=== PATIENT | female | born 1940 | race African-American/Black ===

== ENCOUNTER 2017-06-25 07:06 | Emergency (ER) | payer MEDICARE, OTHER ==
[2017-06-25] MEDS: ACETAMINOPHEN 325 MG TABLET. PO (08:23)
== END 2017-06-25 09:14 | disposition home or self-care (01) ==
LOC: ER 07:06
DX: S16.1XXA Strain of muscle, fascia and tendon at neck level, initial encounter (principal); S39.012A Strain of muscle, fascia and tendon of lower back, initial encounter; I10 Essential (primary) hypertension; E11.9 Type 2 diabetes mellitus without complications; Z88.2 Allergy status to sulfonamides; V43.42XA Person boarding or alighting a car injured in collision with other type car, initial encounter; Y93.89 Activity, other specified; Y99.8 Other external cause status; Y92.488 Other paved roadways as the place of occurrence of the external cause
CPT/HCPCS: 72100; 72125; 99284-25

== ENCOUNTER → 2017-09-08 | Outpatient (CLI) | payer MEDICARE, OTHER | END | disposition home or self-care (01) | LOC: MAMMO 07:48 | DX: Z12.31 Encounter for screening mammogram for malignant neoplasm of breast (principal); I10 Essential (primary) hypertension; E11.9 Type 2 diabetes mellitus without complications | CPT/HCPCS: 77063; 77067 ==

== ENCOUNTER 2018-06-29 18:46 | Inpatient (IN) | payer MEDICARE ==
[~2018-06-29] VITALS: Ht 162.6 cm; Wt 61.3 kg
[~2018-06-29 18:46] MED LIST: METF500T16 PO; METO-239 PO
[2018-06-29] MEDS ORDERED: fentaNYL PF VIAL 100 MCG/2 ML VIAL IV ONE (19:30)
[2018-06-29] MEDS ORDERED: ASPIRIN CHEWABLE 81 MG TABLET. PO ONE (20:00)
[2018-06-29 20:10] LABS: BASO % 0 % (0-3); EOS # 0.1 x10^3/uL (0.0-0.7); EOS % 1 % (0-3); HEMATOCRIT 40.7 % (36.0-47.0); HEMOGLOBIN 12.8 g/dL (12.0-15.5); LYMPH % 9 % (24-48); MEAN CORPUSCULAR HEMOGLOBIN 27 pg (25-35); MEAN CORPUSCULAR HGB CONC 32 g/dL (31-37); MEAN CORPUSCULAR VOLUME 86 fL (79-100); MONO # 0.9 x10^3/uL (0.0-1.1); MONO % 8 % (0-9); NEUT # 9.7 x10^3uL (1.8-7.7); NEUT % 82 % (31-73); PLATELET COUNT 190 x10^3/uL (140-400); RED BLOOD COUNT 4.73 x10^6/uL (3.50-5.40); RED CELL DISTRIBUTION WIDTH 15.4 % (11.5-14.5); WHITE BLOOD COUNT 11.9 x10^3/uL (4.0-11.0)
[2018-06-29 20:18] LABS: PROTHROMBIN TIME PATIENT 14.2 SEC (11.7-14.0)
[2018-06-29 20:29] LABS: CALCIUM 8.8 mg/dL (8.5-10.1); CREATININE 0.9 mg/dL (0.6-1.0); GFR 72.9; POTASSIUM 4.1 mmol/L (3.5-5.1)
[2018-06-29 20:34] LABS: ALBUMIN 3.4 g/dL (3.4-5.0); ALBUMIN/GLOBULIN RATIO 1.1 (1.0-1.7); TOTAL BILIRUBIN 0.6 mg/dL (0.2-1.0); TOTAL PROTEIN 6.6 g/dL (6.4-8.2)
[2018-06-29 21:00] LABS: BILIRUBIN,URINE NEGATIVE (NEG); CLARITY,URINE CLEAR; COLOR,URINE YELLOW; NITRITE,URINE NEGATIVE (NEG); PH,URINE 5.5; PROTEIN,URINE NEGATIVE (NEG-TRACE); UROBILINOGEN,URINE 0.2 mg/dL (0.2 mg/dL)
[2018-06-29 21:05] LABS: RBC,URINE RARE /HPF (0-2)
[2018-06-29 21:06] LABS: BACTERIA,URINE 0 /HPF (0-FEW); SQUAMOUS EPITHELIAL CELL,UR FEW /LPF
[2018-06-29] MEDS ORDERED: IOHEXOL 300 MG/ML 100ML VIAL. IV ONE (21:15)
--- NOTE | 2018-06-29 21:59 | RAD ---
CT scan of the abdomen and pelvis with contrast 06/29/2018 CLINICAL HISTORY: Pancreatitis. TECHNIQUE: After the intravenous administration of 75 cc of Omnipaque 300, contiguous, 5 mm axial sections were obtained through the abdomen and pelvis. One or more of the following individualized dose reduction techniques were utilized for this study: 1. Automated exposure control. 2. Adjustment of the mA and/or kV according to patient size. 3. Use of iterative reconstruction technique. FINDINGS: Comparison is made to a MRCP dated 03/31/2013. Images through the lung bases demonstrate mild cardiomegaly. Minimal dependent subsegmental atelectasis is seen bilaterally. The liver, adrenal glands and right kidney are within normal limits. Rounded low-attenuation lesions are seen involving the left kidney which likely represent cysts. These measure 3 mm to 1.2 cm in size. Surgical clips are seen within the left upper quadrant of the abdomen consistent with a splenectomy. The distal body/tail of pancreas has been resected. No acute abnormality of the remaining pancreas is seen. No pancreatic pseudocyst is noted. Atherosclerotic calcification of the abdominal aorta and its branches is noted. The abdominal aorta tapers normally. The patient is post cholecystectomy. Surgical clips are seen scattered throughout the upper abdomen. There is no evidence of bowel obstruction. Images through the pelvis demonstrate the urinary bladder distended with urine. Multiple diverticula are seen involving the sigmoid colon. No inflammatory changes are seen adjacent fat. Calcifications are seen within the pelvis phleboliths. No free fluid is seen. Mild S-shaped curvature of the thoracolumbar spine is seen. Degenerative changes are seen involving the lower thoracic and throughout the lumbar spine and both hips. IMPRESSION: No acute abnormality is seen. Electronically signed by: Beni Brink MD (06/29/2018 9:55 PM) [facility]
[2018-06-29] MEDS ORDERED: ONDANSETRON PF 4 MG/2 ML VIAL. IV PRN (22:30)
[2018-06-29] MEDS ORDERED: MORPHINE SULFATE 4 MG/ML VIAL. IV PRN (22:30)
[2018-06-29] MEDS ORDERED: IV NORMAL SALINE 1000ML BAG 1,000 ML IV SCH (23:00)
--- NOTE | 2018-06-29 23:00 | NUR ---
Pt was admitted to the unit from ER with c/o CP that started tonight on her way home from a friends house. Pt states being nauseous and vomiting once, which helped with her CP. Pt is A/Ox4, on RA, up adlib and tolerating well. Pts's B/P elevated 181/76, will recheck and call for prn medications if indicated. H&P completed, called [facility] and verified her medications with pharmacy. Pt is SR on telemetry, bed in low/locked position, call light within reach, will continue to monitor for status changes.
[2018-06-29 23:16] VITALS: BP 181/85
--- NOTE | 2018-06-30 00:01 | RAD ---
AP portable chest radiograph 06/29/2018 Clinical History: Chest pain. An AP erect portable digital radiograph of the chest was obtained. Comparison study is dated 07/12/2015. The cardiac silhouette is borderline enlarged. The thoracic aorta is tortuous. Atherosclerotic calcification of the thoracic aorta is seen. No acute pulmonary infiltrate is noted. No pneumothorax or pleural effusion is seen. Degenerative changes are seen involving the thoracic spine and both shoulders. Impression: No acute abnormality is seen. Electronically signed by: Beni Brink MD (06/29/2018 11:58 PM) [facility]
[2018-06-30] MEDS ORDERED: LOSA-73 PO (01:29)
[2018-06-30] MEDS ORDERED: HYDR-2763 PO (01:29)
[2018-06-30] MEDS ORDERED: VALS320T2 PO (01:29)
--- NOTE | 2018-06-30 01:59 | PHYS DOC ---
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 30 minutes left to right side of the chest while driving associated with single episode of emesis also has been having about a week of pain underneath bilateral ribs and her doctor thought it might be her gallbladder but they weren't really sure they said if it came back she should be evaluated. No fever she still is nauseous a little bit her chest pain has gone away. Review of Systems Review of Systems Constitutional: Denies fever or chills [] Eyes: Denies change in visual acuity, redness, or eye pain [] HENT: Denies nasal congestion or sore throat [] Respiratory: Mild cough Cardiovascular Musculoskeletal: She has one week of low back pain as well Integument: Denies rash or skin lesions [] Neurologic: Denies headache, focal weakness or sensory changes [] Endocrine: Denies polyuria or polydipsia [] All other systems were reviewed and found to be within normal limits, except as documented in this note. Current Medications Current Medications Current Medications Medications (Trade) Dose Ordered Sig/Leonora Start Time Stop Time Status Last Admin Dose Admin Aspirin (Children'S Aspirin) 324 mg 1X ONCE 06/29/18 20:00 06/29/18 20:01 DC 06/29/18 20:00 324 MG Fentanyl Citrate (Fentanyl 2ml Vial) 50 mcg 1X ONCE 06/29/18 19:30 06/29/18 19:33 DC 06/29/18 20:01 50 MCG Allergies Allergies Allergies Coded Allergies Type Severity Reaction Last Updated Verified Sulfa (Sulfonamide Antibiotics) Allergy Severe Eyes and tongue swell. 06/29/18 Yes Physical Exam Physical Exam Constitutional: Well developed, well nourished, no acute distress, non-toxic appearance. [] HENT: Normocephalic, atraumatic, bilateral external ears normal, oropharynx moist, no oral exudates, nose normal. [] Eyes: PERRLA, EOMI, conjunctiva normal, no discharge. [] Neck: Normal range of motion, no tenderness, supple, no stridor. [] Cardiovascular:Heart rate regular rhythm, no murmur [] Lungs & Thorax: Bilateral breath sounds clear to auscultation [] Abdomen: Bowel sounds normal, soft, no tenderness, no masses, no pulsatile masses. [] Skin: Warm, dry, no erythema, no rash. [] Back: No tenderness, no CVA tenderness. [] Extremities: No tenderness, no cyanosis, no clubbing, ROM intact, no edema. [] Neurologic: Alert and oriented X 3, normal motor function, normal sensory function, no focal deficits noted. [] Psychologic: Affect normal, judgement normal, mood normal. [] Current Patient Data Vital Signs Vital Signs Date Time Temp Pulse Resp B/P (MAP) Pulse Ox O2 Delivery O2 Flow Rate FiO2 06/29/18 20:28 64 16 172/80 (110) 96 Room Air 06/29/18 18:48 98.0 98.0 Lab Values Laboratory Tests Test 06/29/18 20:00 06/29/18 20:45 White Blood Count 11.9 x10^3/uL (4.0-11.0) H Red Blood Count 4.73 x10^6/uL (3.50-5.40) Hemoglobin 12.8 g/dL (12.0-15.5) Hematocrit 40.7 % (36.0-47.0) Mean Corpuscular Volume 86 fL (79-100) Mean Corpuscular Hemoglobin 27 pg (25-35) Mean Corpuscular Hemoglobin Concent 32 g/dL (31-37) Red Cell Distribution Width 15.4 % (11.5-14.5) H Platelet Count 190 x10^3/uL (140-400) Neutrophils (%) (Auto) 82 % (31-73) H Lymphocytes (%) (Auto) 9 % (24-48) L Monocytes (%) (Auto) 8 % (0-9) Eosinophils (%) (Auto) 1 % (0-3) Basophils (%) (Auto) 0 % (0-3) Neutrophils # (Auto) 9.7 x10^3uL (1.8-7.7) H Lymphocytes # (Auto) 1.0 x10^3/uL (1.0-4.8) Monocytes # (Auto) 0.9 x10^3/uL (0.0-1.1) Eosinophils # (Auto) 0.1 x10^3/uL (0.0-0.7) Basophils # (Auto) 0.0 x10^3/uL (0.0-0.2) Prothrombin Time 14.2 SEC (11.7-14.0) H Prothrombin Time INR 1.1 (0.8-1.1) Sodium Level 141 mmol/L (136-145) Potassium Level 4.1 mmol/L (3.5-5.1) Chloride Level 103 mmol/L (98-107) Carbon Dioxide Level 24 mmol/L (21-32) Anion Gap 14 (6-14) Blood Urea Nitrogen 16 mg/dL (7-20) Creatinine 0.9 mg/dL (0.6-1.0) Estimated GFR (Cockcroft-Gault) 72.9 BUN/Creatinine Ratio 18 (6-20) Glucose Level 107 mg/dL (70-99) H Calcium Level 8.8 mg/dL (8.5-10.1) Total Bilirubin 0.6 mg/dL (0.2-1.0) Aspartate Amino Transferase (AST) 41 U/L (15-37) H Alanine Aminotransferase (ALT) 24 U/L (14-59) Alkaline Phosphatase 100 U/L (46-116) Troponin I Quantitative < 0.017 ng/mL (0.000-0.055) Total Protein 6.6 g/dL (6.4-8.2) Albumin 3.4 g/dL (3.4-5.0) Albumin/Globulin Ratio 1.1 (1.0-1.7) Lipase 1111 U/L (73-393) H Urine Collection Type Unknown Urine Color Yellow Urine Clarity Clear Urine pH 5.5 Urine Specific [place] 1.015 Urine Protein Negative mg/dL (NEG-TRACE) Urine Glucose (UA) Negative mg/dL (NEG) Urine Ketones (Stick) Negative mg/dL (NEG) Urine Blood Negative (NEG) Urine Nitrite Negative (NEG) Urine Bilirubin Negative (NEG) Urine Urobilinogen Dipstick 0.2 mg/dL (0.2 mg/dL) Urine Leukocyte Esterase Negative (NEG) Urine RBC Rare /HPF (0-2) Urine WBC 1-4 /HPF (0-4) Urine Squamous Epithelial Cells Few /LPF Urine Bacteria 0 /HPF (0-FEW) Urine Mucus Slight /LPF Laboratory Tests 06/29/18 20:00 Laboratory Tests 06/29/18 20:00 EKG EKG []Normal sinus rhythm there is some subtle ST changes laterally no definite ST elevation PA. QTC 420 interpreted by me time of encounter Radiology/Procedures Radiology/Procedures The cardiac silhouette is borderline enlarged. The thoracic aorta is tortuous. Atherosclerotic calcification of the thoracic aorta is seen. No acute pulmonary infiltrate is noted. No pneumothorax or pleural effusion is seen. Degenerative changes are seen involving the thoracic spine and both shoulders. Impression: No acute abnormality is seen. Electronically signed by: Beni Brink MD (06/29/2018 11:58 PM) [facility] DICTATED and SIGNED BY: BENI BRINK MD DATE: 06/29/18 9755 [] Impressions: ancreatitis. TECHNIQUE: After the intravenous administration of 75 cc of Omnipaque 300, contiguous, 5 mm axial sections were obtained through the abdomen and pelvis. One or more of the following individualized dose reduction techniques were utilized for this study: 1. Automated exposure control. 2. Adjustment of the mA and/or kV according to patient size. 3. Use of iterative reconstruction technique. FINDINGS: Comparison is made to a MRCP dated 03/31/2013. Images through the lung bases demonstrate mild cardiomegaly. Minimal dependent subsegmental atelectasis is seen bilaterally. The liver, adrenal glands and right kidney are within normal limits. Rounded low-attenuation lesions are seen involving the left kidney which likely represent cysts. These measure 3 mm to 1.2 cm in size. Surgical clips are seen within the left upper quadrant of the abdomen consistent with a splenectomy. The distal body/tail of pancreas has been resected. No acute abnormality of the remaining pancreas is seen. No pancreatic pseudocyst is noted. Atherosclerotic calcification of the abdominal aorta and its branches is noted. The abdominal aorta tapers normally. The patient is post cholecystectomy. Surgical clips are seen scattered throughout the upper abdomen. There is no evidence of bowel obstruction. Images through the pelvis demonstrate the urinary bladder distended with urine. Multiple diverticula are seen involving the sigmoid colon. No inflammatory changes are seen adjacent fat. Calcifications are seen within the pelvis phleboliths. No free fluid is seen. Mild S-shaped curvature of the thoracolumbar spine is seen. Degenerative changes are seen involving the lower thoracic and throughout the lumbar spine and both hips. IMPRESSION: No acute abnormality is seen. Electronically signed by: Beni Brink MD (06/29/2018 9:55 PM) [facility] Course & Med Decision Making Course & Med Decision Making Pertinent Labs and Imaging studies reviewed. 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 Repeat troponins ordered for inpatient overnight. I spoke with Dr. Mejia accepted admission for chest pain as well as evidence of pancreatitis on laboratory values. CT abdomen and pelvis was negative acute patient was given pain control and admitted in stable condition Dragon Disclaimer Dragon Disclaimer This electronic medical record was generated, in whole or in part, using a voice recognition dictation system. Departure Departure Impression: Primary Impression: Pancreatitis Disposition: ADMITTED INPATIENT Admitting Physician: Other Condition: STABLE Referrals: LUIS HUTCHINSON MD (PCP) MARINA MANDUJANO MD June 30, 2018 01:59
[2018-06-30 03:38] VITALS: BP 142/76
--- NOTE | 2018-06-30 06:44 | EKG ---
[facility] [address] [place] [address] Test Date: 2018-06-29 Test Time: 18:52:02 Pat Name: JOANNE COLE Department: Room: 244 1 Gender: F Drywall Sander: BRANDY : 1940 Requested By: MARINA MANDUJANO Order Number: [id number] Reading MD: Malick Bonilla Measurements Intervals [place] Rate: 62 P: 22 DC: 208 QRS: 30 QRSD: 78 T: 84 QT: 412 QTc: 420 Interpretive Statements SINUS RHYTHM T ABNORMALITY IN HIGH LATERAL LEADS ABNORMAL ECG No previous ECG available for comparison Electronically Signed On 07-24-2018 11:41:50 CDT by Malick Bonilla
[2018-06-30 07:00] VITALS: BP 125/71
--- NOTE | 2018-06-30 09:21 | PDOC2 ---
GI CONSULT Reason For Consult: Pancreatitis HPI: HPI: 78 y/o female who was admitted w/ chest pain. Describes central sharp chest pressure that began yesterday while driving. Additionally, has been having upper abd pain ("just real bad") under ribs wrapping around bilaterally to back x 1 week. Neither pain is affected by eating but sometimes abd pain is bad enough she can't stand up straight. Labs noted mild leukocytosis and elevated lipase (1111). CT A/P was unrevealing for acute issue. Thinks she has a h/o acid reflux and used to take a pill - no longer takes medication for this and denies recent issues w/ heartburn/reflux. Describes globus/dysphagia - solid foods hand in throat and perhaps upper chest with nearly every meal and pass with water - ongoing for a couple weeks. Might have been nauseated at one point recently but no vomiting. Historically is more on the constipated side and has to take suppositories every now and then but actually had a runny stool yesterday. No hematochezia or melena. Has gained weight. Does not recall past episodes of pancreatitis. S/p pancreatic resection for cyst (at in 2007 or 2009), also cholecystectomy and splenectomy ("they took those when they did my pancreas") and ?bowel resection ("leaking"). Denies liver history. Chronic knee pain on hydrocodone and Aleve. EGD 03/2002: minimal H. pylori negative antral gastritis, esophageal empirically dilated. Colonoscopy 05/2002: internal hemorrhoids, normal random colon biopsies, hyperplastic transverse colon polyp. Colonoscopy (Dr. Bhakta) 07/2012: 6mm hyperplastic rectal polyp, Grade 2 internal hemorrhoids. MRCP in 2013 showed borderline dilated pancreatic duct (4mm), distal pancreatectomy, and cyst in anterior pancreatic head. Office records indicate h/o solid food dysphagia (with several previous EGDs prior to above), intermittent blood in stools attributed to hemorrhoids, and constipation. She is scheduled for knee replacement at and has a pre-op appointment at 8:00 a.m. tomorrow that she does not want to miss. After we had been talking awhile, she told me she had a stress test, EKG, and a CT A/P at last week - seems partially for pre-op purposes but also possibly for abd pain. She said she doesn't know results yet. PMH: PMH: HTN, HLD, DM, diverticulosis, GERD, esophageal dilation pancreatic resection, cholecystectomy, splenectomy, bilateral feet surgeries, hysterectomy, bladder sling FH: Family History: No pertinent hx (denies GI cancers or pancreas issues) Social History: Smoke: Quit ALCOHOL: rare Drugs: None ROS: GEN: Denies fevers, chills, sweats HEENT: Denies blurred vision, sore throat CV: +chest pain RESP: Denies shortness of air, cough GI: Per HPI : Denies hematuria, dysuria ENDO: +weight gain NEURO: Denies confusion, dizziness MSK: +chronic knee pain SKIN: Denies jaundice, pruritus Vitals: Vitals: Vital Signs Date Time Temp Pulse Resp B/P (MAP) Pulse Ox O2 Delivery O2 Flow Rate FiO2 06/30/18 07:00 97.8 70 16 125/71 (89) 93 Room Air 97.8 Labs: Labs: Laboratory Tests Test 06/29/18 20:00 06/29/18 20:45 06/30/18 01:50 06/30/18 08:00 White Blood Count 11.9 x10^3/uL (4.0-11.0) Red Blood Count 4.73 x10^6/uL (3.50-5.40) Hemoglobin 12.8 g/dL (12.0-15.5) Hematocrit 40.7 % (36.0-47.0) Mean Corpuscular Volume 86 fL (79-100) Mean Corpuscular Hemoglobin 27 pg (25-35) Mean Corpuscular Hemoglobin Concent 32 g/dL (31-37) Red Cell Distribution Width 15.4 % (11.5-14.5) Platelet Count 190 x10^3/uL (140-400) Neutrophils (%) (Auto) 82 % (31-73) Lymphocytes (%) (Auto) 9 % (24-48) Monocytes (%) (Auto) 8 % (0-9) Eosinophils (%) (Auto) 1 % (0-3) Basophils (%) (Auto) 0 % (0-3) Neutrophils # (Auto) 9.7 x10^3uL (1.8-7.7) Lymphocytes # (Auto) 1.0 x10^3/uL (1.0-4.8) Monocytes # (Auto) 0.9 x10^3/uL (0.0-1.1) Eosinophils # (Auto) 0.1 x10^3/uL (0.0-0.7) Basophils # (Auto) 0.0 x10^3/uL (0.0-0.2) Prothrombin Time 14.2 SEC (11.7-14.0) Prothromb Time International Ratio 1.1 (0.8-1.1) Sodium Level 141 mmol/L (136-145) Potassium Level 4.1 mmol/L (3.5-5.1) Chloride Level 103 mmol/L (98-107) Carbon Dioxide Level 24 mmol/L (21-32) Anion Gap 14 (6-14) Blood Urea Nitrogen 16 mg/dL (7-20) Creatinine 0.9 mg/dL (0.6-1.0) Estimated GFR (Cockcroft-Gault) 72.9 BUN/Creatinine Ratio 18 (6-20) Glucose Level 107 mg/dL (70-99) Calcium Level 8.8 mg/dL (8.5-10.1) Total Bilirubin 0.6 mg/dL (0.2-1.0) Aspartate Amino Transf (AST/SGOT) 41 U/L (15-37) Alanine Aminotransferase (ALT/SGPT) 24 U/L (14-59) Alkaline Phosphatase 100 U/L (46-116) Troponin I Quantitative < 0.017 ng/mL (0.000-0.055) < 0.017 ng/mL (0.000-0.055) < 0.017 ng/mL (0.000-0.055) Total Protein 6.6 g/dL (6.4-8.2) Albumin 3.4 g/dL (3.4-5.0) Albumin/Globulin Ratio 1.1 (1.0-1.7) Lipase 1111 U/L (73-393) Urine Collection Type Unknown Urine Color Yellow Urine Clarity Clear Urine pH 5.5 Urine Specific [place] 1.015 Urine Protein Negative mg/dL (NEG-TRACE) Urine Glucose (UA) Negative mg/dL (NEG) Urine Ketones (Stick) Negative mg/dL (NEG) Urine Blood Negative (NEG) Urine Nitrite Negative (NEG) Urine Bilirubin Negative (NEG) Urine Urobilinogen Dipstick 0.2 mg/dL (0.2 mg/dL) Urine Leukocyte Esterase Negative (NEG) Urine RBC Rare /HPF (0-2) Urine WBC 1-4 /HPF (0-4) Urine Squamous Epithelial Cells Few /LPF Urine Bacteria 0 /HPF (0-FEW) Urine Mucus Slight /LPF Allergies: Coded Allergies: Sulfa (Sulfonamide Antibiotics) (Verified Allergy, Severe, Eyes and tongue swell., 06/29/18) Medications: Current Medications Medications (Trade) Dose Ordered Sig/Leonora Route PRN Reason Start Time Stop Time Status Last Admin Dose Admin Fentanyl Citrate (Fentanyl 2ml Vial) 50 mcg 1X ONCE IV 06/29/18 19:30 06/29/18 19:33 DC 06/29/18 20:01 Aspirin (Children'S Aspirin) 324 mg 1X ONCE PO 06/29/18 20:00 06/29/18 20:01 DC 06/29/18 20:00 Iohexol (Omnipaque 300 Mg/ml) 75 ml 1X ONCE IV 06/29/18 21:15 06/29/18 21:16 DC 06/29/18 21:22 Sodium Chloride 1,000 ml @ 75 mls/hr [id number] IV 06/29/18 23:00 06/30/18 22:59 06/30/18 05:44 Imaging: Imaging: CXR 06/29 Impression: No acute abnormality is seen. CT A/P w/ IV contrast 06/29 Images through the lung bases demonstrate mild cardiomegaly. Minimal dependent subsegmental atelectasis is seen bilaterally. The liver, adrenal glands and right kidney are within normal limits. Rounded low-attenuation lesions are seen involving the left kidney which likely represent cysts. These measure 3 mm to 1.2 cm in size. Surgical clips are seen within the left upper quadrant of the abdomen consistent with a splenectomy. The distal body/tail of pancreas has been resected. No acute abnormality of the remaining pancreas is seen. No pancreatic pseudocyst is noted. Atherosclerotic calcification of the abdominal aorta and its branches is noted. The abdominal aorta tapers normally. The patient is post cholecystectomy. Surgical clips are seen scattered throughout the upper abdomen. There is no evidence of bowel obstruction. Images through the pelvis demonstrate the urinary bladder distended with urine. Multiple diverticula are seen involving the sigmoid colon. No inflammatory changes are seen adjacent fat. Calcifications are seen within the pelvis phleboliths. No free fluid is seen. Mild S-shaped curvature of the thoracolumbar spine is seen. Degenerative changes are seen involving the lower thoracic and throughout the lumbar spine and both hips. IMPRESSION: No acute abnormality is seen. PE: GEN: NAD HEENT: Atraumatic, PERRL LUNGS: CTAB HEART: RRR ABD: NABS, S/ND/NT EXTREMITY: No edema SKIN: No rashes, no jaundice NEURO/PSYCH: A & O 3 A/P: A/P: Chest pain, upper abd pain Leukocytosis, elevated lipase Dysphagia/globus - felt w/ solids, ?h/o GERD, past EGDs w/ empiric esophageal dilation as above S/p pancreatic resection, cholecystectomy, splenectomy - MRCP performed here in 2013 as above w/ borderline dilated PD and pancreatic head cyst CRC screen - UTD (2012) Diverticulosis H/o constipation - had a runny stool yesterday Chronic knee pain, NSAID use -- She wants to follow-up at tomorrow as planned - seems has had similar workup at both facilities. She says she's pain-free now. Okay to try clears per GI, ADAT. Will review additional recs re: pancreas w/ Dr. Walters - ?outpt MRCP and/or EUS Start PPI considering dysphagia, possible h/o GERD, and NSAID use. Could also consider EGD and/or esophagram. RN called - received records from . I reviewed - include recent MPI but no recent CT as she described - however, did have CT A/P in 2015 for back and flank pain - pancreatic findings seem about the same. MARTINEZ HERNANDEZ June 30, 2018 09:21
[2018-06-30 09:27] LABS: CHOLESTEROL/HDL RATIO 2.9
[2018-06-30] MEDS ORDERED: GINS100C3 PO (10:44)
[2018-06-30 11:00] VITALS: BP 145/77
[2018-06-30] MEDS ORDERED: PANTOPRAZOLE 40 MG TABLET.DR. PO SCH (11:30)
[2018-06-30] MEDS ORDERED: LOSARTAN POTASSIUM 50 MG TABLET. PO SCH (12:00)
[2018-06-30] MEDS ORDERED: METOPROLOL SUCC 24HR ER 50 MG TAB.ER.24H. PO SCH (12:30)
--- NOTE | 2018-06-30 13:13 | NUR ---
SS following for discharge planning. SS reviewed pt chart. Pt is from home and is currently on room air. PT/OT ordered. SS will await PT/OT evaluations and recommendations and will proceed accordingly.
--- NOTE | 2018-06-30 14:03 | SSS ---
ADMIT DATE: 06/30/2018 SHORT STAY SUMMARY CHIEF COMPLAINT: Abdominal pain. HISTORY OF PRESENT ILLNESS: This patient is a pleasant middle-aged female who normally follows at . She presented with abdominal pain. It was radiating to the chest and she was concerned she could have coronary artery disease. Actually, she had a stress test at recently that was negative. She rates her symptoms at 10/10. She has associated nausea. I discussed the case with the ER physician. We admitted the patient. Now she is in the Telemetry floor and I just examined her this morning. The nurse just called me and explained that the patient wants to leave because she has to go see her Anesthesia doctor. Clinically, she was doing well. I will go ahead and let her go if okay with GI. PAST MEDICAL HISTORY: Pancreatic resection, diabetes, hypertension, knee surgery, toe surgery, bladder surgery, hysterectomy and arrhythmias. ALLERGIES: SULFA. FAMILY HISTORY: Coronary artery disease. SOCIAL HISTORY: She does not drink, smoke or take drugs. MEDICATIONS: Reviewed. She is on hydrocodone and Aleve. REVIEW OF SYSTEMS: GENERAL: No history of weight change, weakness or fevers. SKIN: No bruising, hair changes or rashes. EYES: No blurred, double or loss of vision. NOSE AND THROAT: No history of nosebleeds, hoarseness or sore throat. HEART: No history of palpitations, chest pain or shortness of breath on exertion. LUNGS: Denies cough, hemoptysis, wheezing or shortness of breath. GASTROINTESTINAL: Denies changes in appetite, nausea, vomiting, diarrhea or constipation. GENITOURINARY: No history of frequency, urgency, hesitancy or nocturia. NEUROLOGIC: Denies history of numbness, tingling, tremor or weakness. PSYCHIATRIC: No history of panic, anxiety or depression. ENDOCRINE: No history of heat or cold intolerance, polyuria or polydipsia. EXTREMITIES: Denies muscle weakness, joint pain, pain on walking or stiffness. PHYSICAL EXAMINATION: VITAL SIGNS: Temperature afebrile, pulse 98, respirations 18 and blood pressure 144/90. GENERAL: She is alert, cooperative, requesting discharge. HEART: Normal S1, S2. LUNGS: Clear. ABDOMEN: Soft, minimal tenderness. EXTREMITIES: Trace edema. SKIN: No rashes. ENDOCRINE: No thyromegaly. LYMPHATICS: No cervical nodes. HEMATOPOIETIC: No bruising. PSYCHIATRIC: She is stable. Flat affect. LABORATORY DATA: White count is 12. Electrolytes are normal. Troponin 0. Urinalysis is negative. INR is 1. Lipase was 1111. ASSESSMENT AND PLAN: Resolving pancreatitis. The patient was admitted overnight for observation. This morning, she wants to go ahead and leave. We gave her some clear liquids. We will go ahead and discharge if okay with GI. DISPOSITION: Home. ACTIVITY: As tolerated. DIET: Low sodium. MEDICATIONS: We will resume the previous home medications. TOTAL TIME: 32 minutes. LUKAS ARGUETA DO DR: OTTONIEL/dangelo JOB#: [id number] / [id number]
[2018-06-30] MEDS ORDERED: Pantoprazole PO (14:05)
[2018-06-30 15:05] VITALS: BP 136/65
[2018-06-30 15:26] VITALS: BP 172/83
--- NOTE | 2018-06-30 16:00 | NUR ---
Discharge Note: JOANNE COLE [facility] Discharge instructions and discharge home medications reviewed with Patient and a copy given. All questions have been answered and understanding verbalized. The following instructions and handouts were given: discharge instructions, GERD info, CP info. Discontinued lines and drains: Peripheral IV intact. Patient discharged to Home or Self Care with Friend via Wheelchair at 1600. BP was 136/65 at time of discharge.
== END 2018-06-30 16:03 | disposition home or self-care (01) | DRG 440 ==
LOC: ER 18:46 → 2 SOUTH 21:10
PROVIDERS: ADMIT Internal Medicine; ATTEND Internal Medicine
DX: K85.90 Acute pancreatitis without necrosis or infection, unspecified (principal); E11.9 Type 2 diabetes mellitus without complications; E78.5 Hyperlipidemia, unspecified; G89.29 Other chronic pain; I10 Essential (primary) hypertension; I70.0 Atherosclerosis of aorta; I87.8 Other specified disorders of veins; K21.9 Gastro-esophageal reflux disease without esophagitis; K27.9 Peptic ulcer, site unspecified, unspecified as acute or chronic, without hemorrhage or perforation; K57.30 Diverticulosis of large intestine without perforation or abscess without bleeding; K59.00 Constipation, unspecified; R13.10 Dysphagia, unspecified; Z82.49 Family history of ischemic heart disease and other diseases of the circulatory system; Z90.49 Acquired absence of other specified parts of digestive tract; Z90.710 Acquired absence of both cervix and uterus; Z90.81 Acquired absence of spleen; Z90.411 Acquired partial absence of pancreas; Z88.2 Allergy status to sulfonamides
CPT/HCPCS: 36415; 71045; 74177; 80053; 80061; 81001; 83690; 84484; 85025; 85610; 93005; 96374; J3010; J7030; Q9967; 99285-25

== ENCOUNTER → 2018-09-09 | Outpatient (CLI) | payer MEDICARE ==
[~2018-09-09] MED LIST changes: +GINS100C3 PO; +HYDR-2763 PO; +LOSA-73 PO; +Pantoprazole PO; +VALS320T2 PO
--- NOTE | 2018-09-10 11:07 | RAD ---
EXAM: MAMMO [facility] DIAG LT, BREAST LEFT HISTORY: imaging evaluation of a region of pain in the left breast COMPARISON: 04/02/2017 09/25/2012 Left CC and MLO views of the breasts were performed. Left breast tomosynthesis was performed in CC and MLO projections. This study was interpreted with the benefit of Computerized Aided Detection (CAD). Breast Density: The breast parenchyma is heterogeneously dense, which could reduce sensitivity of mammography. Breast parenchyma level C. FINDINGS: Benign calcifications are present. A small well-circumscribed masses seen in the retroareolar, slightly superior left breast measuring approximately 5 cm from the nipple. The visualized axillae are unremarkable. Given the patient described left breast pain and abnormality within the left breast on mammogram, ultrasound was performed. ULTRASOUND FINDINGS: Targeted ultrasound of the mammographic area of concern and region of patient described pain was performed. 12:00 position, 5 cm from the nipple: A near anechoic mass of circumscribed margins and internal homogeneous low level echoes is present with parallel orientation and is of oval/round shape. There is no internal vascularity on Doppler interrogation. It demonstrates posterior acoustic enhancement and measures 0.4 x 0.4 x 0.3 cm. 2:00 position, 4 cm from the nipple: A hypoechoic mass of circumscribed margins and round/oval shape is present, measuring 0.5 x 0.2 x 0.4 cm. This demonstrates internal homogenous hypoechoic echogenicity. The region of patient's pain in the lower, lateral left breast was also assessed with ultrasound and normal fibroglandular tissue is identified in this region. IMPRESSION: Left breast complicated cystic structure and likely benign-appearing nodule, findings for which short-term imaging is advised. BI-RADS CATEGORY: 3 PROBABLY BENIGN FINDING(S)-SHORT INTERVAL FOLLOW-UP SUGGESTED RECOMMENDED FOLLOW-UP: 6M 6 MONTH FOLLOW-UP 6 month follow up imaging of the left breast is recommended with dedicated diagnostic mammography and ultrasound. Recommend clinical management of the patient's left breast pain. PQRS compliance statement: Patient information was entered into a reminder system with a target due date for the next mammogram. Mammography is a sensitive method for finding small breast cancers, but it does not detect them all and is not a substitute for careful clinical examination. A negative mammogram does not negate a clinically suspicious finding and should not result in delay in biopsying a clinically suspicious abnormality. "Our facility is accredited by the [employer] Mammography Program." LOBITOD
== END | disposition home or self-care (01) ==
LOC: MAMMO 12:12
PROVIDERS: ATTEND Internal Medicine Cardiovascular Disease
DX: Z12.31 Encounter for screening mammogram for malignant neoplasm of breast (principal); N63.20 Unspecified lump in the left breast, unspecified quadrant; N64.89 Other specified disorders of breast
CPT/HCPCS: 77063; 77067

== ENCOUNTER → 2020-03-07 | Outpatient (CLI) | payer MEDICARE ==
--- NOTE | 2020-03-07 17:19 | RAD ---
DATE: 03/07/2020 3:10 PM EXAM: MAMMO [facility]ALIA SCREENING BILATERAL HISTORY: Screening COMPARISON: 09/09/2018 Bilateral CC and MLO views of the breasts were performed. Bilateral breast tomosynthesis was performed in CC and MLO projections. This study was interpreted with the benefit of Computerized Aided Detection (CAD). FINDINGS: Breast Density: SCATTERED The breast parenchyma shows scattered fibroglandular densities. Breast parenchyma level B No suspicious masses, microcalcifications or architectural distortion is present to suggest malignancy in either breast. The visualized axillae are unremarkable. IMPRESSION: No mammographic evidence of malignancy. BI-RADS CATEGORY: 1 NEGATIVE RECOMMENDED FOLLOW-UP: 12M 12 MONTH FOLLOW-UP Annual screening mammography is recommended, unless clinically indicated sooner based on symptoms or change in physical exam. PQRS compliance statement: Patient information was entered into a reminder system with a target due date for the next mammogram. Mammography is a sensitive method for finding small breast cancers, but it does not detect them all and is not a substitute for careful clinical examination. A negative mammogram does not negate a clinically suspicious finding and should not result in delay in biopsying a clinically suspicious abnormality. "Our facility is accredited by the [employer] Mammography Program."
== END ==
LOC: MAMMO 15:02
PROVIDERS: ATTEND Family Medicine
DX: Z12.31 Encounter for screening mammogram for malignant neoplasm of breast (principal)
CPT/HCPCS: 77063; 77067

== ENCOUNTER → 2021-03-13 | Outpatient (CLI) | payer OTHER ==
--- NOTE | 2021-03-13 14:08 | RAD ---
Digital bilateral screening mammogram with tomography dated 03/13/2021. INDICATION: 80 years of age asymptomatic female patient presents for screening mammography. TECHNIQUE: Full field craniocaudal and mediolateral oblique images of both breasts were obtained usi ng digital technique with tomosynthesis and also analyzed with computer-aided detection software. . COMPARISON: 09/09/2018 03/07/2020. BREAST COMPOSITION: Category B: There are scattered fibroglandular densities. FINDINGS: No suspicious mass or clustered microcalcification. Parenchymal pattern is stable. There are scattere d benign-appearing calcifications, unchanged. IMPRESSION: No mammographic evidence of malignancy. RECOMMENDATION: Annual screening mammography is recommended, unless clinically indicated sooner based on symptoms or change in physical exam. BIRADS 1: NEGATIVE This study was interpreted with the benefit of Computerized Aided Detection (CAD). Recommend routine screening in one year. Patient information is entered into the reminder system with a target due date for the next screening mammogram. Mammography is the most sensitive method for finding small breast cancers, but it does not detect the m all and is not a substitute for careful clinical examination. A negative mammogram does not negate a clinically suspicious finding and should not result in delay in biopsying a clinically suspicious a bnormality. "Our facility is accredited by the [employer] Mammography [employer]." Electronically signed by: Nba Triana MD (03/13/2021 2:05 PM) [id number]
== END ==
LOC: MAMMO 13:14
PROVIDERS: ATTEND Internal Medicine Cardiovascular Disease
DX: Z12.31 Encounter for screening mammogram for malignant neoplasm of breast (principal)
CPT/HCPCS: 77063; 77067